=== PATIENT | male | born 1970 | race Caucasian/White ===

== ENCOUNTER 2022-10-31 09:55 | Emergency (ER) | payer OTHER ==
[~2022-10-31] VITALS: Ht 182.9 cm; Wt 90.0 kg
[2022-10-31] MEDS ORDERED: CEPHALEXIN500 M2 PO (11:47)
[2022-10-31 12:36] VITALS: BP 146/102
== END 2022-10-31 12:12 | disposition home or self-care (01) ==
LOC: ED 09:55
DX: S92.532A Displaced fracture of distal phalanx of left lesser toe(s), initial encounter for closed fracture (principal); S91.115A Laceration without foreign body of left lesser toe(s) without damage to nail, initial encounter; Z88.1 Allergy status to other antibiotic agents; Z28.310 Unvaccinated for COVID-19; W20.8XXA Other cause of strike by thrown, projected or falling object, initial encounter; Y92.59 Other trade areas as the place of occurrence of the external cause; Y99.0 Civilian activity done for income or pay
CPT/HCPCS: 90715